=== PATIENT | female | born 1995 | race Caucasian/White ===

== ENCOUNTER 2016-09-14 14:34 | Emergency (ER) | payer OTHER, BC ==
[2016-09-14] MEDS ORDERED: NAPROXEN 250 MG TAB As Ordered ONE (15:34)
--- NOTE | 2016-09-14 16:07 | EDDOCDS ---
Physician Documentation [facility] Name: Deepa Carpio Age: 21 yrs Sex: Female : 1995 Arrival Date: 09/14/2016 Time: 14:34 Bed Private MD: NO PRIMARY PHYSICIAN, . Disposition: 09/14/16 15:41 Discharged to Home/Self Care. Impression: Low back pain - Acute, Right-sided. - Condition is Stable. - Discharge Instructions: Back Pain, Adult. - Prescriptions for Mobic 7.5 mg Oral Tablet - take 1 tablet by ORAL route once daily take with food; 20 tablet. Prednisone 20 mg Oral Tablet - take 3 tablet by ORAL route once daily for 5 days; 15 tablet. Zanaflex 4 mg Oral Tablet - take 1 tablet by ORAL route At bedtime As needed May cause drowsiness, do not take while driving/operating heavy machinery.; 20 tablet. - Work Release Form - 3 day, Referral List Call for Appointment, Medication Reconciliation, Local Pharmacy Hours form. - Follow up: [facility] ; When: 1 - 2 days; Reason: Recheck today's complaints, Continuance of care. Follow up: Emergency Department; Reason: Worsening of conditions. Follow up: [facility]; When: Call to arrange an appointment; Reason: Further diagnostic work-up, Recheck today's complaints, Continuance of care. - Problem is new. - Symptoms have improved. Historical: - Allergies: no known allergies; - Home Meds: 1. none - PMHx: back pain; dislocated S I joint; - PSHx: none; - Social history: Smoking status: Patient states was never smoker of tobacco. No barriers to communication noted, The patient speaks fluent Italian, Speaks appropriately for age. - Family history: Not pertinent. - : The pt / caregiver states he / she is not on anticoagulants. Home medication list is obtained from the patient. - Exposure Risk Screening:: None identified. 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 6 in. (167.64 cm) (R); Pain 4/10; 15:51 BP 117 / 76 LA Sitting (auto/reg); Pulse 75; Resp 18; Temp 96.6(O); Pulse Ox 100% ; jrd Pain 4/10; 14:36 Body Mass Index 26.63 (74.84 kg, 167.64 cm) gr2 MDM: 15:28 Naproxen 500 mg PO once; administer with food or milk ordered. ef1 15:28 Ice Pack ordered. ef1 15:31 Financial registration complete. 15:41 [facility] Payment Agreement was scanned into [employer] and attached to record. lg Administered Medications: 15:38 Drug: Naproxen 500 mg [naproxen 250 mg tablet (2 tabs)] Route: PO; [facility] 16:04 Follow up: Response: Pain is decreased hs1 Signatures: Amanda Zamudio, RN RN srm Elpidio Vazquez, Reg Reg Nina Fernandes, PA-C PAAmanC ef1 Gloria Pham RN RN 1 Elizabeth Arredondo RN [facility] The chart was reviewed and I authenticate all verbal orders and agree with the evaluation and treatment provided.Attachments: 15:41 [facility] Payment Agreement lg MTDD
--- NOTE | 2016-09-14 16:07 | EDDOCDS ---
Nurse's Notes [facility] Name: Deepa Carpio Age: 21 yrs Sex: Female : 1995 Arrival Date: 09/14/2016 Time: 14:34 Bed PR Private MD: NO PRIMARY PHYSICIAN, . 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 felt better yesterday but today at work it was throbbing and now having pain left side. incident occurred at work. Acute neurological deficits are not present. Mechanism of Injury: Lifting. Adult Sepsis Screening: The patient does not have new or worsening altered mentation. Patient's respiratory rate is less than 22. Systolic blood pressure is greater than 100. Patient has a qSOFA score of 0- Negative Sepsis Screen. Suicide/Homicide risk assessment- the patient denies having any suicidal and/or homicidal ideations and does not present with any other emotional, behavioral or mental health complaints. Status: Patient is not a surgical services assistant or dependent. Transition of care: patient was not received from another setting of care. 14:47 Acuity: LISA Level [address] [facility] 14:47 Method Of Arrival: Walkin/Carried/Asstd [facility] Triage Assessment: 14:50 General: Appears in no apparent distress, Behavior is appropriate for age, cooperative. srm Pain: Pain currently is 4 out of 10 on a pain scale. Musculoskeletal: Reports right low back pain. 14:50 HIV screening NA for this visit Offered previously. 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 Historical: - Allergies: no known allergies; - Home Meds: 1. none - PMHx: back pain; dislocated S I joint; - PSHx: none; - Social history: Smoking status: Patient states was never smoker of tobacco. No barriers to communication noted, The patient speaks fluent Belgian, Speaks appropriately for age. - Family history: Not pertinent. - : The pt / caregiver states he / she is not on anticoagulants. Home medication list is obtained from the patient. - Exposure Risk Screening:: None identified. Screenin:05 Screening information is obtained from the patient. Fall risk: No risks identified. hs1 Assistance ADL's: requires no assistance with activities of daily living. Abuse/DV Screen: The patient / caregiver reports he/she is: not in a situation that causes fear, pain or injury. Nutritional screening: No deficits noted. Advance Directives: There is no active DNR order. home support is adequate. Assessment: 16:04 General: Appears in no apparent distress, Behavior is appropriate for age, cooperative. hs1 Pain:. Neurological: Level of Consciousness is awake, alert. Respiratory: No deficits noted. Derm: Skin is pink, warm & dry. normal. Vital Signs: 14:36 BP 126 / 65; Pulse 73; Resp 18 S; Temp 97.5(O); Pulse Ox 100% on R/A; Weight 74.84 kg gr2 (R); Height 5 ft. 6 in. (167.64 cm) (R); Pain 4/10; 15:51 BP 117 / 76 LA Sitting (auto/reg); Pulse 75; Resp 18; Temp 96.6(O); Pulse Ox 100% ; jrd Pain 4/10; 14:36 Body Mass Index 26.63 (74.84 kg, 167.64 cm) gr2 Vitals: 14:36 Log In Time: September 14, 2016 at 14:36. gr2 ED Course: 14:35 Patient visited by Maria Clark. gr2 14:35 Patient moved to Waiting gr2 14:36 NO PRIMARY PHYSICIAN, . is Private Physician. gr2 14:37 Patient visited by Maria Clark. gr2 14:37 Patient moved to Pre RCE gr2 14:49 Triage Initiated srm 15:19 Nina Fernandes PA-C [facility]. ef1 15:19 Vinay Buchanan MD is Attending Physician. ef1 15:19 Patient visited by Nina Fernandes PA-C. ef1 15:19 Patient moved to PR srm 15:41 Patient visited by Nina Fernandes PA-C. ef1 15:41 [facility] is Referral Physician. ef1 15:41 [facility]. ef1 15:41 [facility] Payment Agreement was scanned into [employer] and attached to record. lg 16:05 The patient / caregiver is instructed regarding the plan of care and ED course. hs1 16:05 No IV's were initiated during this patient's visit. No procedures done that require hs1 assistance. Administered Medications: 15:38 Drug: Naproxen 500 mg [naproxen 250 mg tablet (2 tabs)] Route: PO; [facility] 16:04 Follow up: Response: Pain is decreased hs1 Order Results: There are currently no results for this order. Outcome: 15:41 Discharge ordered by Provider. ef1 16:06 Discharge Assessment: Patient awake, alert and oriented x 3. No cognitive and/or hs1 functional deficits noted. Patient verbalized understanding of disposition instructions. patient administered narcotics - no. The following High Risk Discharge criteria are identified: None. Discharged to home ambulatory. Condition: stable. Discharge instructions given to patient, Instructed on discharge instructions, follow up and referral plans. medication usage, Demonstrated understanding of instructions, medications, Pt was receptive of discharge instructions/ teaching. Prescriptions given X 3. No special radiology studies were completed. Property sent home with patient. 16:06 Patient left the ED. hs1 Signatures: Amanda Zamudio, RN RN [facility] Elpidio Vazquez, Antony Hardy Nina Fernandes, PA-C PA-C ef1 Gloria Pham RN RN hs1 Elizabeth Arredondo RN RN [facility] Maria Clark gr2 Mario Alberto Garza, FARIHA FRUCTOSE LOADER jrd MTDD
--- NOTE | 2016-09-16 17:07 | EDDOCDS ---
Physician Documentation [facility] Name: Deepa Carpio Age: 21 yrs Sex: Female : 1995 Arrival Date: 09/14/2016 Time: 14:34 Bed Private MD: NO PRIMARY PHYSICIAN, . Disposition: 09/14/16 15:41 Discharged to Home/Self Care. Impression: Low back pain - Acute, Right-sided. - Condition is Stable. - Discharge Instructions: Back Pain, Adult. - Prescriptions for Mobic 7.5 mg Oral Tablet - take 1 tablet by ORAL route once daily take with food; 20 tablet. Prednisone 20 mg Oral Tablet - take 3 tablet by ORAL route once daily for 5 days; 15 tablet. Zanaflex 4 mg Oral Tablet - take 1 tablet by ORAL route At bedtime As needed May cause drowsiness, do not take while driving/operating heavy machinery.; 20 tablet. - Work Release Form - 3 day, Referral List Call for Appointment, Medication Reconciliation, Local Pharmacy Hours form. - Follow up: [facility] ; When: 1 - 2 days; Reason: Recheck today's complaints, Continuance of care. Follow up: Emergency Department; Reason: Worsening of conditions. Follow up: [facility]; When: Call to arrange an appointment; Reason: Further diagnostic work-up, Recheck today's complaints, Continuance of care. - Problem is new. - Symptoms have improved. Historical: - Allergies: no known allergies; - Home Meds: 1. none - PMHx: back pain; dislocated S I joint; - PSHx: none; - Social history: Smoking status: Patient states was never smoker of tobacco. No barriers to communication noted, The patient speaks fluent Puerto Rican, Speaks appropriately for age. - Family history: Not pertinent. - : The pt / caregiver states he / she is not on anticoagulants. Home medication list is obtained from the patient. - Exposure Risk Screening:: None identified. 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 6 in. (167.64 cm) (R); Pain 4/10; 15:51 BP 117 / 76 LA Sitting (auto/reg); Pulse 75; Resp 18; Temp 96.6(O); Pulse Ox 100% ; jrd Pain 4/10; 14:36 Body Mass Index 26.63 (74.84 kg, 167.64 cm) gr2 MDM: 15:28 Naproxen 500 mg PO once; administer with food or milk ordered. ef1 15:28 Ice Pack ordered. ef1 15:31 Financial registration complete. lg 15:41 [facility] Payment Agreement was scanned into [employer] and attached to record. 09/15 12:22 T-Sheet-- Draft Copy was scanned into [employer] and attached to record. gb Administered Medications: 09/14 15:38 Drug: Naproxen 500 mg [naproxen 250 mg tablet (2 tabs)] Route: PO; [facility] 16:04 Follow up: Response: Pain is decreased hs1 Signatures: Amanda Zamudio, RN RN [facility] Kisha Narvaez, Reg Reg gb Elpidio Vazquez, Reg Reg lg Nina Fernandes, PA-C PA-C ef1 Gloria Pham RN RN hs1 Elizabeth Arredondo RN [facility] The chart was reviewed and I authenticate all verbal orders and agree with the evaluation and treatment provided.Attachments: 15:41 [facility]CLUDES THE [facility] Payment Agreement 09/15 12:22 T-Sheet-- Draft Copy Chart Complete MTDD
--- NOTE | 2016-09-16 17:07 | EDDOCDS ---
Nurse's Notes [facility] Name: Deepa Carpio Age: 21 yrs Sex: Female : 1995 Arrival Date: 09/14/2016 Time: 14:34 Bed PR Private MD: NO PRIMARY PHYSICIAN, . 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 felt better yesterday but today at work it was throbbing and now having pain left side. incident occurred at work. Acute neurological deficits are not present. Mechanism of Injury: Lifting. Adult Sepsis Screening: The patient does not have new or worsening altered mentation. Patient's respiratory rate is less than 22. Systolic blood pressure is greater than 100. Patient has a qSOFA score of 0- Negative Sepsis Screen. Suicide/Homicide risk assessment- the patient denies having any suicidal and/or homicidal ideations and does not present with any other emotional, behavioral or mental health complaints. Status: Patient is not a visitor services associate or dependent. Transition of care: patient was not received from another setting of care. 14:47 Acuity: LISA Level 4 [facility] 14:47 Method Of Arrival: Walkin/Carried/Asstd [facility] Triage Assessment: 14:50 General: Appears in no apparent distress, Behavior is appropriate for age, cooperative. srm Pain: Pain currently is 4 out of 10 on a pain scale. Musculoskeletal: Reports right low back pain. 14:50 HIV screening NA for this visit Offered previously. 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 none - PMHx: back pain; dislocated S I joint; - PSHx: none; - Social history: Smoking status: Patient states was never smoker of tobacco. No barriers to communication noted, The patient speaks fluent Australian, Speaks appropriately for age. - Family history: Not pertinent. - : The pt / caregiver states he / she is not on anticoagulants. Home medication list is obtained from the patient. - Exposure Risk Screening:: None identified. Screenin:05 Screening information is obtained from the patient. Fall risk: No risks identified. hs1 Assistance ADL's: requires no assistance with activities of daily living. Abuse/DV Screen: The patient / caregiver reports he/she is: not in a situation that causes fear, pain or injury. Nutritional screening: No deficits noted. Advance Directives: There is no active DNR order. home support is adequate. Assessment: 16:04 General: Appears in no apparent distress, Behavior is appropriate for age, cooperative. hs1 Pain:. Neurological: Level of Consciousness is awake, alert. Respiratory: No deficits noted. Derm: Skin is pink, warm & dry. normal. Vital Signs: 14:36 BP 126 / 65; Pulse 73; Resp 18 S; Temp 97.5(O); Pulse Ox 100% on R/A; Weight 74.84 kg gr2 (R); Height 5 ft. 6 in. (167.64 cm) (R); Pain 4/10; 15:51 BP 117 / 76 LA Sitting (auto/reg); Pulse 75; Resp 18; Temp 96.6(O); Pulse Ox 100% ; jrd Pain 4/10; 14:36 Body Mass Index 26.63 (74.84 kg, 167.64 cm) gr2 Vitals: 14:36 Log In Time: September 14, 2016 at 14:36. gr2 ED Course: 14:35 Patient visited by Maria Clark. gr2 14:35 Patient moved to Waiting gr2 14:36 NO PRIMARY PHYSICIAN, . is Private Physician. gr2 14:37 Patient visited by Maria Clark. gr2 14:37 Patient moved to Pre RCE gr2 14:49 Triage Initiated srm 15:19 [facility]andes [facility] ef[facility] 15:19 Vinay Buchanan MD is Attending Physician. ef1 15:19 Patient visited by Nina Fernandes PA-C. ef1 15:19 Patient moved to PR srm 15:41 Patient visited by Nina Fernandes PA-C. ef1 15:41 [facility] is Referral Physician. ef1 15:41 [facility]. ef1 15:41 [facility] Payment Agreement was scanned into [employer] and attached to record. lg 16:05 The patient / caregiver is instructed regarding the plan of care and ED course. hs1 16:05 No IV's were initiated during this patient's visit. No procedures done that require hs1 assistance. 09/15 12:22 T-Sheet-- Draft Copy was scanned into [employer] and attached to record. gb Administered Medications: 09/14 15:38 Drug: Naproxen 500 mg [naproxen 250 mg tablet (2 tabs)] Route: PO; [facility] 16:04 Follow up: Response: Pain is decreased hs1 Order Results: There are currently no results for this order. Outcome: 15:41 Discharge ordered by Provider. ef1 16:06 Discharge Assessment: Patient awake, alert and oriented x 3. No cognitive and/or hs1 functional deficits noted. Patient verbalized understanding of disposition instructions. patient administered narcotics - no. The following High Risk Discharge criteria are identified: None. Discharged to home ambulatory. Condition: stable. Discharge instructions given to patient, Instructed on discharge instructions, follow up and referral plans. medication usage, Demonstrated understanding of instructions, medications, Pt was receptive of discharge instructions/ teaching. Prescriptions given X 3. No special radiology studies were completed. Property sent home with patient. 16:06 Patient left the ED. hs1 Signatures: Amanda Zamudio, RN RN [facility] Kisha Narvaez, Reg Reg gb Elpidio Vazquez, Reg Reg lg Nina Fernandes, PA-C PA-C ef1 Gloria Pham RN RN hs1 Elizabeth Arredondo RN RN [facility] Maria Clark gr2 Mario Alberto Garza, FARIHA FIRE CONTROLMAN jrd Chart Complete MTDD
--- NOTE | 2016-09-16 17:07 | EDDOCDS ---
Physician Documentation [facility] Name: Deepa Carpio Age: 21 yrs Sex: Female : 1995 Arrival Date: 09/14/2016 Time: 14:34 Bed Private MD: NO PRIMARY PHYSICIAN, . Disposition: 09/14/16 15:41 Discharged to Home/Self Care. Impression: Low back pain - Acute, Right-sided. - Condition is Stable. - Discharge Instructions: Back Pain, Adult. - Prescriptions for Mobic 7.5 mg Oral Tablet - take 1 tablet by ORAL route once daily take with food; 20 tablet. Prednisone 20 mg Oral Tablet - take 3 tablet by ORAL route once daily for 5 days; 15 tablet. Zanaflex 4 mg Oral Tablet - take 1 tablet by ORAL route At bedtime As needed May cause drowsiness, do not take while driving/operating heavy machinery.; 20 tablet. - Work Release Form - 3 day, Referral List Call for Appointment, Medication Reconciliation, Local Pharmacy Hours form. - Follow up: [facility] ; When: 1 - 2 days; Reason: Recheck today's complaints, Continuance of care. Follow up: Emergency Department; Reason: Worsening of conditions. Follow up: [facility]; When: Call to arrange an appointment; Reason: Further diagnostic work-up, Recheck today's complaints, Continuance of care. - Problem is new. - Symptoms have improved. Historical: - Allergies: no known allergies; - Home Meds: 1. none - PMHx: back pain; dislocated S I joint; - PSHx: none; - Social history: Smoking status: Patient states was never smoker of tobacco. No barriers to communication noted, The patient speaks fluent Botswanan, Speaks appropriately for age. - Family history: Not pertinent. - : The pt / caregiver states he / she is not on anticoagulants. Home medication list is obtained from the patient. - Exposure Risk Screening:: None identified. 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 6 in. (167.64 cm) (R); Pain 4/10; 15:51 BP 117 / 76 LA Sitting (auto/reg); Pulse 75; Resp 18; Temp 96.6(O); Pulse Ox 100% ; jrd Pain 4/10; 14:36 Body Mass Index 26.63 (74.84 kg, 167.64 cm) gr2 MDM: 15:28 Naproxen 500 mg PO once; administer with food or milk ordered. ef1 15:28 Ice Pack ordered. ef1 15:31 Financial registration complete. lg 15:41 [facility] Payment Agreement was scanned into [employer] and attached to record. 09/15 12:22 T-Sheet-- Draft Copy was scanned into [employer] and attached to record. gb Administered Medications: 09/14 15:38 Drug: Naproxen 500 mg [naproxen 250 mg tablet (2 tabs)] Route: PO; [facility] 16:04 Follow up: Response: Pain is decreased hs1 Signatures: Amanda Zamudio, RN RN [facility] Kisha Narvaez, Reg Reg gb Elpidio Vazquez, Reg Reg lg Nina Fernandes, PA-C PA-C ef1 Gloria Pham RN RN hs1 Elizabeth Arredondo RN [facility] The chart was reviewed and I authenticate all verbal orders and agree with the evaluation and treatment provided.Attachments: 15:41 [facility] Payment Agreement 09/15 12:22 T-Sheet-- Draft Copy Chart Complete MTDD
== END 2016-09-14 16:06 | disposition home or self-care (01) ==
LOC: M ED 14:34
DX: M54.5 Low back pain (principal)

== ENCOUNTER → 2016-11-16 | Outpatient (CLI) | payer OTHER, BC ==
--- NOTE | 2016-11-16 08:51 | REP ---
MRI LUMBAR SPINE WITHOUT CONTRAST: HISTORY: Back pain. COMPARISON: 10/24/2007. There is no disc bulge or herniation at the L1-2 through L3-4 and L5-S1 levels. The nerves exit the neural foramina without compression. A diffuse disc bulge is present at the L4-5 level. This abuts the thecal sac. The L4 nerves exit the neural foramina without compression. The conus medullaris is normal in appearance terminating at the level of the T12-L1 intervertebral disc . Normal signal intensity is present in the lumbar intervertebral discs and vertebral bodies. IMPRESSION: Diffuse disc bulge at the L4-5 level. This abuts the thecal sac. This is a new finding. Signed by Zane Root MD 11/16/2016 08:53 A
== END ==
LOC: M RAD 07:01
PROVIDERS: ATTEND Orthopaedic Surgery
DX: M51.26 Other intervertebral disc displacement, lumbar region (principal)

== ENCOUNTER → 2017-05-19 | Outpatient (REF) | payer BC | LOC: M SFHCWAGY 08:56 | PROVIDERS: ATTEND Nurse Practitioner Women's Health | DX: Z12.4 Encounter for screening for malignant neoplasm of cervix (principal) ==

== ENCOUNTER → 2017-07-18 | Outpatient (CLI) | payer BC | LOC: M WUC 10:38 | PROVIDERS: ATTEND Family Medicine | DX: Z00.00 Encounter for general adult medical examination without abnormal findings (principal) ==

== ENCOUNTER → 2017-12-08 | Outpatient (REF) | payer BC ==
[2017-12-08 17:58] LABS: APPEARANCE, URINE HAZY (CLEAR); BACTERIA, URINE AUTO NEGATIVE (NEGATIVE); BILIRUBIN, URINE AUTO NEGATIVE (NEGATIVE); BLOOD, URINE BLOOD 1+ (NEGATIVE); COLOR, URINE YELLOW (YELLOW); GLUCOSE, URINE (UA) AUTO NEGATIVE (NEGATIVE); KETONE, URINE AUTO NEGATIVE (NEGATIVE); LEUKOCYTE ESTERASE, URINE AUTO TRACE (NEGATIVE); NITRITE, URINE AUTO NEGATIVE (NEGATIVE); PROTEIN, URINE AUTO NEGATIVE (NEGATIVE); RBC, URINE AUTO 3 /HPF (0-3); SPECIFIC GRAVITY URINE AUTO 1.021 (1.002-1.035); SQUAMOUS EPITHELIAL CELL UR AU 3 /HPF (0-6); UROBILINOGEN, URINE AUTO 0.2 mg/dL (0.0-2.0); WBC, URINE AUTO 7 /HPF (0-3)
== END ==
LOC: M LAB REF 17:09
DX: N39.0 Urinary tract infection, site not specified (principal)
CPT/HCPCS: 81001

== ENCOUNTER → 2019-06-16 | Outpatient (REF) | payer BC, OTHER | LOC: M LAB REF 13:37 | PROVIDERS: ATTEND Nurse Practitioner Family | DX: J02.9 Acute pharyngitis, unspecified (principal) ==

== ENCOUNTER 2020-04-29 11:58 | Outpatient (CLI) | payer OTHER ==
[~2020-04-29] VITALS: Ht 167.6 cm; Wt 94.3 kg
[2020-04-29 12:16] VITALS: BP 113/66
[2020-04-29] MEDS ORDERED: TUMS500C PO (12:22)
[2020-04-29] MEDS ORDERED: GNP28TAB2 PO (12:22)
[2020-04-29 14:09] VITALS: BP 115/70
--- NOTE | 2020-04-29 14:36 | IPNPDOC ---
Obstetrical Progress Note Date of Service Apr 29, 2020 Subjective 24-year-old 1 at 33 weeks 5 gestational age, presents to labor and delivery after a fall earlier today. She reports active movements. Denies any vaginal bleeding, leakage of fluid or contractions. She states that she fell from standing position and her landed on navin side and did not land on her abdomen. Objective: Vital signs stable. She is afebrile. She has category 1 rate tracing. General appearance well-appearing, no acute distress Abdomen was soft, gravid, nontender. Assessment 24-year-old 1 at 33 weeks 5 days estimated gestational age status post fall currently stable. No signs of abruption or distress. Reassuring status. Plan is to discharge home with labor precautions and kick count instructions. She will follow-up at next OB appointment on May 14 Objective Vital Signs Date Time Temp Pulse Resp B/P (MAP) Pulse Ox O2 Delivery O2 Flow Rate FiO2 04/29/20 12:16 98.6 84 18 113/66 (82) Assessment Variability: Moderate Accelerations: Positive Decelerations: None Heart Rate Tracing: Category I Tocometer Contractions: No Assessment and Plan Age: 24 : 1 EGA at Admission: 33 Status: Reassuring THEODORE CORTEZ MD. Apr 29, 2020 14:36
== END 2020-04-29 14:20 | disposition home or self-care (01) ==
LOC: M LDO 11:58
PROVIDERS: ATTEND Obstetrics & Gynecology
DX: O99.89 Other specified diseases and conditions complicating pregnancy, childbirth and the puerperium (principal); W01.0XXA Fall on same level from slipping, tripping and stumbling without subsequent striking against object, initial encounter; Z3A.33 33 weeks gestation of pregnancy
CPT/HCPCS: 59025; G0378; G0463

== ENCOUNTER 2020-06-22 09:26 | Inpatient (IN) | payer OTHER ==
[~2020-06-22] VITALS: Ht 167.6 cm; Wt 98.0 kg
[2020-06-22] VITALS (17 sets, daily range): BP systolic 91–136; BP diastolic 50–78
[~2020-06-22 09:26] MED LIST: GNP28TAB2 PO; TUMS500C PO
[2020-06-22] MEDS ORDERED: COLA100C5 PO (09:49)
[2020-06-22] MEDS ORDERED: PEPC1TAB5 PO (09:49)
[2020-06-22] MEDS ORDERED: LR 1,000 ML IV ONE (10:15)
[2020-06-22] MEDS ORDERED: miSOPROStol 50 MCG 1/2 TAB (S0191) PO ONE ×2 (10:30→15:45)
[2020-06-22] MEDS ORDERED: LACTATED RINGER'S 1000 ML IV ONE (10:30)
[2020-06-22 10:49] LABS: HEMATOCRIT 35.4 % (36.0-47.0); MEAN CORPUSCULAR HEMOGLOBIN 28.4 pg (27.0-33.0); MEAN CORPUSCULAR HGB CONC 31.1 g/dl (32.0-36.5); MEAN CORPUSCULAR VOLUME 91.5 fl (80.0-96.0); PLATELET COUNT, AUTOMATED 289 10^3/uL (150-450); RED BLOOD COUNT 3.87 10^6/uL (4.00-5.40); WHITE BLOOD COUNT 10.1 10^3/uL (4.0-10.0)
[2020-06-22] MEDS: LR 1,000 ML IV SCH ×2 (11:21→18:13)
--- NOTE | 2020-06-22 11:28 | HPEPDOC ---
Obstetrical History & Physical General Date of Admission Jun 22, 2020 at 09:26 Primary Care Physician: Chris Goss MD History of Present Illness 06/22/20 1043 AM 24 YO AT 41.3 WEEKS FOR IOL Chief Complaint: Induction of labor Age: 24 : 1 Term: 0 Pre-term: 0 Abortions: 0 Livin Care Care: Good Care Dating Final EDC: Jun 12, 2020 Final EDC for Daily Update: Jun 12, 2020 Final EDC by: LMP LMP: Sep 11, 2019 EGA at Admission: 41.3 Past Medical History Past Obstetrical History : Past Obstetrical History: [facility] History: No pertinent history Past Medical History Surgical History: Denies/None Family History Significant Family History: No pertinent family hx Social History Marital Status: Family situation: Spouse/partner home Psychosocial History: No pertinent psych hx * Smoker: non-smoker Alcohol: Denies Abuse Violence Screening Have you been hit/kicked/slapp: No Have you been sexually assault: No Imunizations Tdap status: current Influenza Status: current Allergies Coded Allergies: adhesive (Verified Allergy, Intermediate, skin peels/redness, 06/22/20) Medications Scheduled Docusate Sodium (Colace) 100 Mg Capsule, 100 MG PO DAILY Famotidine (Pepcid) 20 Mg Tablet, 20 MG PO DAILY Pnv No.95/Ferrous Fum/Folic AC ( Vitamins Tablet) 1 Each Tablet, 1 TAB PO DAILY Scheduled PRN Calcium Carbonate (Tums) 200 Mg Tab.chew, 600 MG PO PRN PRN for HEARTBURN Physical Examination Physical Examination GENERAL: Alert and oriented times three. BREAST: . ABDOMEN: Gravid and non-tender to touch. FETUS: Is vertex (VTX) by sterile vaginal examination (SVE), fetus is vertex (VTX) by Ricky. HEART RATE: Regular rate and rhythm. LUNGS: Clear to auscultation NO RALES NO RHONCHI EXTREMITIES: No edema. NO CLONUS Other physical findings REVIEWED IOL PROCESS BASED ON CERVICAL EXAMINATION IE CYTOTEC , PITOCIN AND JOSEPH CATHETER Vital Signs/I&O urine 1.000 ph 7.0 negative bp 110/73 hr 93 rr 20 Laboratory Data 24H LABS Laboratory Tests 2 06/22/20 09:34: Serology Scanned Report Hepatitis B Testing Pertinent Laboratoy Data Blood Type: O+ RBC Antibody Screen: Negative HIV: Negative Hepatitis B: Negative Rapid Plasma Reagin: Nonreactive Rubella: Immune Varicella: Immune Chlamydia/Gonorrhea: Negative Group B Streptococcus: Negative Cystic Fibrosis: Negative Anatomy Ultrasound Placenta Location: Anterior Normal Anatomy: Yes Placenta Previa: No Vaginal Examination Dilation: 1cm Effacement: 50% Station: -3 Cervical Consistency: Medium Cervical Position: Posterior Presentation: Cephalic presentation Assessment Variability: Moderate Accelerations: Present Decelerations: None Tocometer Contractions: No Assessment/Plan Assessment 24 year-old (G1 para (P0 at 41.3 weeks BY LMP Presents to Labor and Delivery (L&D) . Plan Admit and orient. Quality Project Manager and consent. Diet: RAYMUNDO Group B Streptococcus (GBS) [negative]. Labs and intravenous (IV) per unit protocol. Counseled on Pitocin and induction of labor (IOL). Lactated Ringers (LR): Bolus 1000 mL, then at 125 mL/hr. Anticipate [normal spontaneous delivery ()]. C-S as appropriate. Labor and Delivery Counseling REVIEWED CONSENT FOR VAGINAL DELIVERY MAY INCLUDE PITOCIN OR CYTOTEC OR JOSEPH BULB RISK IS TACHYCARDIA, UTERINE SYSTOLE , UTERINE RUPTURE RISK FOR CS INCLUDE HEMORRHAGE INFECTION PERFORATION REOPERATION REMOTE FOR BLOOD TRANSFUSION REMOTE HYSTERECTOMY FOR LIFE THREATENING BLEEDING RISK WITH EPISIOTOMY, CAUSES NEED FOR REPAIR TO VAGINA BLADDER OR BOWEL, RISK IF NEEDED FOR FORCEPS OR VACUUM FOR EMERGENCY DELIVERY CAN RESULT IN SCRATCHES , HEMATOMA OR INTRACRANIAL BLEED NO CATEGORY 1 STRIP PATIENT EXPRESSED UNDERSTANDING 20 MINUTE DISCUSSION SAFE TO PROCEED . PLAN IS FOR CYTOTEC TO SOFTEN CERVIX THEN ATTEMPT JOSEPH BULB AND PITOCIN Chris Goss MD Jun 22, 2020 11:01
--- NOTE | 2020-06-22 21:06 | IPNPDOC ---
Text Note Date of Service The patient was seen on 06/22/20. NOTE 06/22/20 2100 hours assessment patient having contractions mild occasional moderate with category 1 strip. assessment re Cytotec or Brothers bulb and Pitocin . EXAMINATION 2 CM ANTERIOR SOFT 70% EFFACED -3 STATION PROGRESS MADE REVIEWED COOK'S CATHETER WITH PATIENT EXPRESSED UNDERSTANDING . APPLIED COOK'S CATHETER 60 CC UTERINE 40 CC VAGINAL NO DIFFICULTY. SAFE TO PROCEED , VS,Fishbone, I+O VS, Fishbone, I+O Laboratory Tests 06/22/20 10:32 Vital Signs Date Time Temp Pulse Resp B/P (MAP) Pulse Ox O2 Delivery O2 Flow Rate FiO2 06/22/20 20:39 75 18 119/59 (79) 06/22/20 19:25 97.9 06/22/20 09:49 98 Chris Goss MD Jun 22, 2020 21:05
[2020-06-22] MEDS ORDERED: OXYTOCIN DRIP 30 UNITS in IV 1 EA IV SCH (21:15)
[2020-06-22] MEDS ORDERED: FENTANYL 2MCG/ML ROPIVACAINE 0.2% IN 0.9% NACL 100ML IVBAG As Ordered ONE (22:55)
[2020-06-22] MEDS ORDERED: EPIDURAL/PCA KEYS XX PRN (23:59)
[2020-06-22] MEDS ORDERED: diphenhydrAMINE 50MG/ML VIAL (J1200) IV PRN (23:59)
[2020-06-22] MEDS ORDERED: FENTANYL/ROPIVACAINE/NACL BAG 100 ML EPIDURAL SCH (23:59)
[2020-06-22] MEDS ORDERED: EPIDURAL COMMENT XX SCH (23:59)
[2020-06-22] MEDS ORDERED: LACTATED RINGER'S 1000 ML IV PRN (23:59)
[2020-06-22] MEDS ORDERED: NALOXONE INJ 0.4MG/1ML VIAL (J2310 PER 1MG) IV PRN (23:59)
[2020-06-22] MEDS ORDERED: REFRIGERATOR IV KEYS XX PRN (23:59)
[2020-06-22] MEDS ORDERED: ONDANSETRON 4MG/2ML VIAL IV PRN (23:59)
[2020-06-23] VITALS (32 sets, daily range): BP systolic 97–131; BP diastolic 53–78
[2020-06-23] MEDS ORDERED: ePHEDrine SULFATE 25 MG/5 ML(5MG/ML) SYRINGE As Ordered ONE (00:45)
[2020-06-23] MEDS: ePHEDrine SULFATE 25 MG/5 ML(5MG/ML) SYRINGE IV PRN ×3 (00:47→00:53)
--- NOTE | 2020-06-23 01:03 | IPNPDOC ---
Text Note Date of Service The patient was seen on 06/23/20. NOTE 06/23/20 100 am review progress has epidural in place Brothers bulb removed 5-6 cm dilated AROM clear liquor -3 OT 70% effaced . patient requires ephedrine due to low bp post epidural VS,Fishbone, I+O VS, Fishbone, I+O Laboratory Tests 06/22/20 10:32 Vital Signs Date Time Temp Pulse Resp B/P (MAP) Pulse Ox O2 Delivery O2 Flow Rate FiO2 06/23/20 00:52 90 100/57 (71) 06/23/20 00:02 96.9 18 06/22/20 09:49 98 I&O- Last 24 Hours up to 6 AM 06/23/20 06:00 Intake Total 1500 ml Output Total 950 ml Balance 550 ml Chris Goss MD Jun 23, 2020 01:03
[2020-06-23] MEDS: LR 1,000 ML IV SCH (03:20)
[2020-06-23 05:16] LABS: CORD GAS ABE A -4.1; CORD GAS HCO3 A 23.9 MEQ/L; CORD GAS O2 SAT A 33.9 %; CORD GAS PCO2 A 56.1 mmHg; CORD GAS PH A 7.247 UNITS; CORD GAS PO2 A 12.4 mmHg; CORD GAS SBC A 19.7 MEQ/L; CORD GAS TCO2 A 25.6 MEQ/L
[2020-06-23 05:17] LABS: CORD GAS ABE V -4.4; CORD GAS O2 SAT V 68.9 %; CORD GAS PCO2 V 45.5 mmHg; CORD GAS PH V 7.303 UNITS; CORD GAS SBC V 20.2 MEQ/L; CORD GAS TCO2 V 23.4 MEQ/L
[2020-06-23] MEDS ORDERED: LR 1,000 ML IV SCH (05:35)
[2020-06-23] MEDS ORDERED: DIBUCAINE 1% OINTMENT 30GM TOP PRN (05:45)
[2020-06-23] MEDS ORDERED: MOM 30ML SUSPENSION UDC PO PRN (05:45)
[2020-06-23] MEDS ORDERED: ACETAMINOPHEN TAB 650MG DOSE (2X325MG) PO PRN (05:45)
[2020-06-23] MEDS ORDERED: METHYLERGONOVINE MALEATE 0.2 MG TAB PO PRN (05:45)
[2020-06-23] MEDS ORDERED: IBUPROFEN 800 MG TAB PO PRN (05:45)
[2020-06-23] MEDS ORDERED: ACETAMINOPHEN 500 MG TAB PO PRN (05:45)
[2020-06-23] MEDS ORDERED: OXYTOCIN INJ 10 UNITS/ML VIAL (J2590) IV ONE (05:45)
[2020-06-23] MEDS ORDERED: RHOGAM 300 MCG (1500 IU) INJ (J2790) IM SCH (05:45)
[2020-06-23] MEDS ORDERED: MEASLES,MUMPS,RUBELLA VACCINE INJ (MMR-II) (90707) SC SCH (05:45)
[2020-06-23] MEDS ORDERED: ANUSOL HC CREAM 30GM TOP PRN (05:45)
[2020-06-23] MEDS ORDERED: IBUPROFEN 600MG TAB PO PRN (05:45)
[2020-06-23] MEDS ORDERED: OXYTOCIN DRIP 30 UNITS in IV 1 EA IV ONE (05:45)
--- NOTE | 2020-06-23 05:55 | DNPDOC ---
[facility] Delivery Note Delivery Note DATE OF DELIVERY: 06/23/2020 PREDELIVERY DIAGNOSIS:41.3 weeks' gestation and labor. POST DELIVERY DIAGNOSIS: Delivered. PROCEDURE: [Spontaneous vaginal delivery RECEIPT AND REPORT CLERK: Dr. JONES ANESTHESIA: EPIDURAL ESTIMATED BLOOD LOSS: 200 mL. FINDINGS: 8 pound 4 ounce FEMALE infant, Score 8/9 , SHORT CORD . DELIVERY SUMMARY: Patient is a 23-year-old 1 now para 1 who was admitted to labor and delivery for PATIENT FULLY DILATED HAS LIVE FEMALE WITH SHORT CORD PLACENTA SPONTANEOUS 3 VESSELS COMPLETE UTERUS CONTRACTED DOWN WITH PITOCIN . HAD SMALL VV RT SIDE REPAIRED ANTERIOR POSTERIOR AND LATERAL MARTINEZ INTACT .. Chris Goss MD Jun 23, 2020 05:55
[2020-06-23] MEDS: PRENATAL VITAMINS CHEWABLE TABLET PO SCH (07:55)
[2020-06-23] MEDS ORDERED: SLF 3 ML SYR IV PRN (08:30)
[2020-06-23] MEDS: SLF 3 ML SYR IV SCH (14:00)
[2020-06-23] MEDS: DOCUSATE SODIUM 100 MG CAP PO PRN (20:56)
--- NOTE | 2020-06-24 04:29 | IPNPDOC ---
Progress Note Date of Service: Jun 24, 2020 Day#: 1 Progress Note SUBJECT: Deepa is a 24-year-old 1 now Para 1001 status post uncompl icated spontaneous vaginal delivery at 41-3/7 weeks' on 06/23/2020 of a 8 pound 4 ounce FEMALE infant, Score 8/9. doing well day # 1. She has been ambulating, voiding spontaneously without issue and tolerating regular diet. Breast feeding without issue. Reports lochia is minimal. Patient is ambulating well. OBJECTIVE: VITAL SIGNS: Within normal limits, afebrile. Alert and oriented times three. normal work of breathing Heart rate: Regular rate and rhythm. Abdomen: Fundus firm at U-2. Soft, NTTP. ASSESSMENT: Deepa is a 24-year-old 1 now Para 1001 status post uncomplicated spontaneous vaginal delivery at 41-3/7 weeks' on 06/23/2020 of a 8 pound 4 ounce FEMALE infant, Score 8/9. doing well day # 1. Vitals within normal limits, afebrile, hemodynamically stable with no evidence of infection. PLAN: 1. continue inpatient admission 2. Tylenol and Motrin for pain. 3. Encourage breast feeding and ambulation. 4. condoms for contraception for now 5. Routine PP visit in 6 weeks in clinic. 6. Discussed return precautions at length. VS, I&O, 24H, Fishbone Vital Signs/I&O Vital Signs Date Time Temp Pulse Resp B/P (MAP) Pulse Ox O2 Delivery O2 Flow Rate FiO2 06/23/20 17:53 96.9 67 20 128/69 (88) 06/22/20 09:49 98 I&O- Last 24 Hours up to 6 AM 06/24/20 06:00 Output Total 1600 ml Balance -1600 ml Laboratory Data 24H LABS Laboratory Tests 2 06/23/20 05:10: Cord Arterial Blood pH 7.247, Cord Arterial Blood PCO2 56.1, Cord Arterial Blood PO2 12.4, Cord Arterial Blood HCO3 23.9, Cord Arterial Blood Total CO2 25.6, Cord Arterial Blood Base Excess -4.1, Cord Arterial Base Excess (Standard 19.7, Cord Arterial Bld Oxygen Saturation 33.9, Cord Venous Blood pH 7.303, Cord Venous Blood PCO2 45.5, Cord Venous Blood PO2 30.0, Cord Venous Blood HCO3 22.0, Cord Venous Blood Total CO2 23.4, Cord Venous Base Excess (Actual) -4.4, Cord Venous Base Excess (Standard) 20.2, Cord Venous Blood Oxygen Saturation 68.9 ROS CASTRO MD Jun 24, 2020 04:29
[2020-06-24 06:24] VITALS: BP 132/64
[2020-06-24] MEDS: PRENATAL VITAMINS CHEWABLE TABLET PO SCH (08:16)
[2020-06-24 08:28] LABS: HEMATOCRIT 35.4 % (36.0-47.0); HEMOGLOBIN 11.2 g/dl (12.0-15.5); MEAN CORPUSCULAR HEMOGLOBIN 29.1 pg (27.0-33.0); MEAN CORPUSCULAR HGB CONC 31.6 g/dl (32.0-36.5); MEAN CORPUSCULAR VOLUME 91.9 fl (80.0-96.0); PLATELET COUNT, AUTOMATED 284 10^3/uL (150-450); RED BLOOD COUNT 3.85 10^6/uL (4.00-5.40); WHITE BLOOD COUNT 12.8 10^3/uL (4.0-10.0)
[2020-06-24 18:00] VITALS: BP_SYST 127; BP_SYST 142; BP_DIAS 62; BP_DIAS 89
[2020-06-24] MEDS: DOCUSATE SODIUM 100 MG CAP PO PRN (21:28)
[2020-06-24] MEDS: SLF 3 ML SYR IV SCH (22:00)
[2020-06-25 05:44] VITALS: BP 126/80
[2020-06-25] MEDS: SLF 3 ML SYR IV SCH (06:00)
--- NOTE | 2020-06-25 08:14 | IPNPDOC ---
Progress Note Date of Service: Jun 25, 2020 Day#: 2 Progress Note SUBJECT: Deepa is a 24yo now status post uncomplicated spontaneous vag inal delivery doing well day # 2. She has been ambulating, voiding spontaneously without issue and tolerating regular diet. Breast feeding without issue. Reports lochia is decreasing. Pain controlled on oral pain meds. OBJECTIVE: VITAL SIGNS: Within normal limits, afebrile. Alert and oriented times three. Abdomen: Fundus firm at U-2. Soft, NTTP. : no edema, small lochia ASSESSMENT: Jaelyn is a 24yo now status post uncomplicated spontaneous vaginal delivery doing well day # 2. Vitals within normal limits, afebrile, hemodynamically stable with no evidence of infection. PLAN: 1. Discharge to home today 2. Tylenol and Motrin for pain. 3. Encourage breast feeding and ambulation. 4. Encourage regular diet as tolerated 5. Routine PP visit in 6 weeks in clinic. 6. Discussed return precautions at length. VS, I&O, 24H, Fishbone Vital Signs/I&O Vital Signs Date Time Temp Pulse Resp B/P (MAP) Pulse Ox O2 Delivery O2 Flow Rate FiO2 06/25/20 05:44 98.1 69 18 126/80 (95) 06/22/20 09:49 98 DAMASO BENAVIDEZ DO Jun 25, 2020 08:14
[2020-06-25] MEDS: PRENATAL VITAMINS CHEWABLE TABLET PO SCH (08:50)
[2020-06-25] MEDS: LR 1,000 ML IV SCH (10:29)
== END 2020-06-25 13:01 | disposition home or self-care (01) | DRG 807 ==
LOC: M LDI 09:26 → M OBS 06-23 11:45
PROVIDERS: ADMIT Obstetrics & Gynecology; ATTEND Obstetrics & Gynecology
PROC: 3E0DXGC Introduction of Other Therapeutic Substance into Mouth and Pharynx, External Approach (ICD-10-PCS; 2020-06-22)
PROC: 3E033VJ Introduction of Other Hormone into Peripheral Vein, Percutaneous Approach (ICD-10-PCS; 2020-06-22)
PROC: 10E0XZZ Delivery of Products of Conception, External Approach (ICD-10-PCS; principal; 2020-06-23)
PROC: 10907ZC Drainage of Amniotic Fluid, Therapeutic from Products of Conception, Via Natural or Artificial Opening (ICD-10-PCS; 2020-06-23)
DX: O48.0 Post-term pregnancy (principal); Z37.0 Single live birth; Z3A.41 41 weeks gestation of pregnancy; O69.3XX0 Labor and delivery complicated by short cord, not applicable or unspecified

== ENCOUNTER 2022-06-02 07:45 | Inpatient (IN) | payer OTHER, BC ==
[2022-06-02] VITALS (38 sets, daily range): BP systolic 95–152; BP diastolic 52–86
[~2022-06-02] VITALS: Ht 167.6 cm; Wt 100.7 kg
[~2022-06-02 07:45] MED LIST changes: +COLA100C5 PO; +PEPC1TAB5 PO
[2022-06-02] MEDS ORDERED: METHYLERGONOVINE MALEATE 0.2 MG/ML VIAL (J2210) IM PRN (07:55)
[2022-06-02] MEDS ORDERED: LIDOCAINE 1% MDV 20ML VIAL INFIL PRN (07:55)
[2022-06-02] MEDS ORDERED: TRANEXAMIC ACID INJection 1,000 MG in NS 100 ML IV PRN (07:55)
[2022-06-02] MEDS ORDERED: LR 1,000 ML IV SCH ×2 (07:55→15:50)
[2022-06-02] MEDS ORDERED: OXYTOCIN DRIP 30 UNITS in IV 1 EA IV PRN (07:55)
[2022-06-02] MEDS ORDERED: LACTATED RINGER'S 1000 ML IV PRN (07:55)
[2022-06-02] MEDS ORDERED: HOME MED LIST COMPLETE! XX SCH (08:55)
[2022-06-02] MEDS ORDERED: OXYTOCIN DRIP 30 UNITS in IV 1 EA IV SCH ×3 (09:15→16:10)
[2022-06-02 09:59] LABS: HEMATOCRIT 34.9 % (36.0-47.0); HEMOGLOBIN 11.2 g/dl (12.0-15.5); MEAN CORPUSCULAR HEMOGLOBIN 29.4 pg (27.0-33.0); MEAN CORPUSCULAR HGB CONC 32.1 g/dl (32.0-36.5); MEAN CORPUSCULAR VOLUME 91.6 fl (80.0-96.0); PLATELET COUNT, AUTOMATED 265 10^3/uL (150-450); RED BLOOD COUNT 3.81 10^6/uL (4.00-5.40); WHITE BLOOD COUNT 12.2 10^3/uL (4.0-10.0)
[2022-06-02] MEDS ORDERED: ONDANSETRON 4MG 2ML VIAL IV PRN ×3 (14:00→16:10)
[2022-06-02] MEDS ORDERED: FENTANYL/ROPIVACAINE/NACL BAG 100 ML EPIDURAL SCH (14:00)
[2022-06-02] MEDS ORDERED: diphenhydrAMINE 50MG/ML VIAL (J1200) IV PRN (14:00)
[2022-06-02] MEDS ORDERED: NALOXONE INJ 0.4MG/1ML VIAL (J2310 PER 1MG) IV PRN (14:00)
[2022-06-02] MEDS ORDERED: LR 500 ML IV PRN (14:00)
[2022-06-02] MEDS ORDERED: ePHEDrine SULFATE 25 MG/5 ML(5MG/ML) SYRINGE IVP PRN (14:00)
[2022-06-02] MEDS ORDERED: EPIDURAL/PCA KEYS XX PRN (14:00)
[2022-06-02 15:47] LABS: CORD GAS ABE A -4.8; CORD GAS ABE V -3.8; CORD GAS HCO3 A 23.3 MEQ/L; CORD GAS HCO3 V 22.6 MEQ/L; CORD GAS O2 SAT A 25.4 %; CORD GAS O2 SAT V 73.8 %; CORD GAS PCO2 A 56.1 mmHg; CORD GAS PCO2 V 45.8 mmHg; CORD GAS PH A 7.236 UNITS; CORD GAS PH V 7.311 UNITS; CORD GAS PO2 V 31.5 mmHg; CORD GAS SBC V 20.8 MEQ/L
[2022-06-02] MEDS ORDERED: RHOGAM 300 MCG (1500 IU) INJ (J2790) IM SCH ×2 (15:50→16:10)
[2022-06-02] MEDS ORDERED: ACETAMINOPHEN 500 MG TAB PO SCH (15:50)
[2022-06-02] MEDS ORDERED: PROMETHAZINE 25 MG TAB PO PRN ×2 (15:50→16:10)
[2022-06-02] MEDS ORDERED: METHYLERGONOVINE MALEATE 0.2 MG TAB PO PRN ×2 (15:50→16:10)
[2022-06-02] MEDS ORDERED: IBUPROFEN 800 MG TAB PO SCH (15:50)
[2022-06-02] MEDS ORDERED: DOCUSATE SODIUM 100MG CAPSULE PO PRN ×2 (15:50→16:10)
[2022-06-02] MEDS ORDERED: DIBUCAINE 1% OINTMENT 30GM TOP PRN ×2 (15:50→16:10)
[2022-06-02] MEDS ORDERED: CALCIUM CARBONATE 500 MG CHEW U/D PO PRN (15:55)
[2022-06-02] MEDS: IBUPROFEN 800 MG TAB PO SCH (18:00)
[2022-06-02] MEDS: ACETAMINOPHEN 500 MG TAB PO SCH ×2 (19:32→22:10)
[2022-06-03] MEDS: IBUPROFEN 800 MG TAB PO SCH ×2 (01:20→10:00)
[2022-06-03] MEDS: ACETAMINOPHEN 500 MG TAB PO SCH ×3 (04:10→16:10)
[2022-06-03 06:00] VITALS: BP 123/65
[2022-06-03 08:20] VITALS: BP 112/58
[2022-06-03] MEDS ORDERED: PRENATAL VITAMINS CHEWABLE TABLET PO SCH ×3 (09:00)
[2022-06-04] MEDS ORDERED: MEASLES,MUMPS,RUBELLA VACCINE INJ (MMR-II) (90707) SC.IMMUN ONE (09:00)
== END 2022-06-03 18:43 | disposition home or self-care (01) | DRG 807 ==
LOC: M LDI 07:45 → M OBS 18:29
PROVIDERS: ADMIT Registered Nurse; ATTEND Obstetrics & Gynecology
PROC: 10E0XZZ Delivery of Products of Conception, External Approach (ICD-10-PCS; principal; 2022-06-02)
DX: O80 Encounter for full-term uncomplicated delivery (principal); Z37.0 Single live birth; Z3A.40 40 weeks gestation of pregnancy

== ENCOUNTER → 2023-05-03 | Outpatient (CLI) | payer OTHER, BC ==
[2023-05-03 12:23] LABS: BASO % 0.6 % (0.0-1.0); EOS # 0.2 10^3/uL (0.0-0.5); EOS % 3.5 % (0.0-3.0); HEMATOCRIT 41.4 % (36.0-47.0); LYMPH # 1.5 10^3/uL (1.5-5.0); LYMPH % 28.1 % (24.0-44.0); MEAN CORPUSCULAR HEMOGLOBIN 29.1 pg (27.0-33.0); MEAN CORPUSCULAR HGB CONC 31.4 g/dl (32.0-36.5); MEAN CORPUSCULAR VOLUME 92.6 fl (80.0-96.0); MONO # 0.5 10^3/uL (0.0-0.8); MONO % 8.4 % (2.0-8.0); NEUTROPHILS # 3.2 10^3/uL (1.5-8.5); NEUTROPHILS % 59.2 % (36.0-66.0); PLATELET COUNT, AUTOMATED 249 10^3/uL (150-450); RED BLOOD COUNT 4.47 10^6/uL (4.00-5.40); WHITE BLOOD COUNT 5.5 10^3/uL (4.0-10.0)
[2023-05-03 12:24] LABS: ALBUMIN 3.9 G/DL (3.2-5.2); ALKALINE PHOSPHATASE 131 U/L (46-116); ALT/SGPT 39 U/L (7.0-40); AST/SGOT 27 U/L (<34); BILIRUBIN,TOTAL 0.7 MG/DL (0.3-1.2); BLOOD UREA NITROGEN 21 MG/DL (9-23); CALCIUM LEVEL 9.6 MG/DL (8.5-10.1); CARBON DIOXIDE LEVEL 31 MMOL/L (20-31); CHLORIDE LEVEL 107 MMOL/L (98-107); CREATININE FOR GFR 0.82 MG/DL (0.55-1.30); GLOMERULAR FILTRATION RATE > 60.0 (>60); GLUCOSE, FASTING 88 MG/DL (60-100); IRON (FE) 66 UG/DL (50-170); PERCENT SATURATION 21.3 % (13.2-45.0); POTASSIUM SERUM 4.6 MMOL/L (3.5-5.1); SODIUM LEVEL 144 MMOL/L (136-145); TOTAL IRON BINDING CAPACITY 310 UG/DL (250-425); TOTAL PROTEIN 6.8 G/DL (5.7-8.2)
[2023-05-03 12:25] LABS: FREE T4 1.14 NG/DL (0.89-1.76); THYROID STIMULATING HORMONE 1.032 uIU/ML (0.55-4.78)
[2023-05-03 12:26] LABS: TOTAL 25(OH) VITAMIN D 27.9 NG/ML (20.0-100.0)
== END ==
LOC: M WUC 09:43
PROVIDERS: ATTEND Registered Nurse
DX: R53.83 Other fatigue (principal)

== ENCOUNTER → 2023-06-06 | Outpatient (REF) | LOC: M EMP 07:48 | PROVIDERS: ATTEND Family Medicine | DX: Z53.9 Procedure and treatment not carried out, unspecified reason (principal) ==

== ENCOUNTER → 2023-07-04 | Outpatient (REF) | payer BC, OTHER | LOC: M SFHCWAGY 10:15 | PROVIDERS: ATTEND Nurse Practitioner Family | DX: Z12.4 Encounter for screening for malignant neoplasm of cervix (principal) | CPT/HCPCS: 87624; G0123 ==

== ENCOUNTER → 2023-09-05 | Outpatient (REF) | LOC: M EMP 08:59 | PROVIDERS: ATTEND Family Medicine | DX: Z11.52 Encounter for screening for COVID-19 (principal) ==

== ENCOUNTER 2024-01-09 12:15 | Emergency (ER) | payer OTHER ==
[~2024-01-09] VITALS: Ht 167.6 cm; Wt 85.7 kg
[2024-01-09 12:15] VITALS: BP 134/75; TEMP 98.2; O2SAT 96
[2024-01-09 13:03] LABS: HEMATOCRIT 38.1 % (36.0-47.0); HEMOGLOBIN 12.5 g/dl (12.0-15.5); MEAN CORPUSCULAR HEMOGLOBIN 30.2 pg (27.0-33.0); MEAN CORPUSCULAR HGB CONC 32.8 g/dl (32.0-36.5); PLATELET COUNT, AUTOMATED 235 10^3/uL (150-450); RED BLOOD COUNT 4.14 10^6/uL (4.00-5.40); WHITE BLOOD COUNT 6.7 10^3/uL (4.0-10.0)
[2024-01-09 13:31] LABS: ALBUMIN 3.9 G/DL (3.2-5.2); ALKALINE PHOSPHATASE 109 U/L (46-116); ALT/SGPT 39 U/L (7.0-40); AST/SGOT 22 U/L (<34); BILIRUBIN,TOTAL 0.6 MG/DL (0.3-1.2); BLOOD UREA NITROGEN 22 MG/DL (9-23); CALCIUM LEVEL 9.3 MG/DL (8.5-10.1); CARBON DIOXIDE LEVEL 26 MMOL/L (20-31); CHLORIDE LEVEL 108 MMOL/L (98-107); CREATININE FOR GFR 0.87 MG/DL (0.55-1.30); GLOMERULAR FILTRATION RATE > 60.0 (>60); GLUCOSE, FASTING 91 MG/DL (60-100); POTASSIUM SERUM 4.5 MMOL/L (3.5-5.1); SODIUM LEVEL 139 MMOL/L (136-145); TOTAL PROTEIN 6.7 G/DL (5.7-8.2)
[2024-01-09 13:33] LABS: HCG, SERUM QUALITATIVE NEGATIVE (NEGATIVE); HEPATITIS B SURFACE ANTIBODY NEGATIVE (POSITIVE)
[2024-01-09 13:41] LABS: ATYPICAL LYMPH 2 % (0-5); EOSINOPHILS 2 % (0-3); LYMPHOCYTES 37 % (16-44); MONOCYTES 8 % (0-5); NEUTROPHILS 51 % (28-66)
[2024-01-09 13:42] LABS: PLATELET ESTIMATE NORMAL (NORMAL)
[2024-01-09 13:45] LABS: HEPATITIS B SURFACE ANTIGEN NEGATIVE (NEGATIVE)
[2024-01-09 13:58] LABS: HIV SCREEN CENTAUR EXPOSED NEGATIVE (NEGATIVE)
[2024-01-09 14:06] LABS: HEPATITIS C VIRUS ABY INDEX < 0.02 INDEX (<0.8)
== END 2024-01-09 13:01 | disposition home or self-care (01) ==
LOC: M ED 12:15
DX: S61.231A Puncture wound without foreign body of left index finger without damage to nail, initial encounter (principal); Z77.21 Contact with and (suspected) exposure to potentially hazardous body fluids; Y92.9 Unspecified place or not applicable; Y93.F9 Activity, other caregiving; Y99.0 Civilian activity done for income or pay; Z91.048 Other nonmedicinal substance allergy status

== ENCOUNTER → 2024-03-27 | Outpatient (REF) | LOC: M EMP 12:50 | PROVIDERS: ATTEND Family Medicine | DX: Z20.822 Contact with and (suspected) exposure to COVID-19 (principal) ==

== ENCOUNTER → 2024-06-01 | Outpatient (REF) | LOC: M EMP 15:43 | PROVIDERS: ATTEND Family Medicine | DX: Z20.822 Contact with and (suspected) exposure to COVID-19 (principal) ==

== ENCOUNTER 2024-06-07 11:15 | Emergency (ER) | payer OTHER | END 2024-06-07 11:30 | disposition left against medical advice (07) | LOC: M ED 11:15 | DX: Z53.21 Procedure and treatment not carried out due to patient leaving prior to being seen by health care provider (principal) ==

== ENCOUNTER 2024-06-07 12:01 | Emergency (ER) | payer OTHER ==
[~2024-06-07] VITALS: Ht 167.6 cm; Wt 84.5 kg
[2024-06-07 12:10] VITALS: BP 119/71; TEMP 96.9; O2SAT 99
[2024-06-07 12:22] LABS: BASO % 0.3 % (0.0-1.0); EOS # 0.1 10^3/uL (0.0-0.5); EOS % 1.5 % (0.0-3.0); HEMATOCRIT 37.6 % (36.0-47.0); HEMOGLOBIN 12.6 g/dl (12.0-15.5); LYMPH # 1.7 10^3/uL (1.5-5.0); LYMPH % 27.6 % (24.0-44.0); MEAN CORPUSCULAR HEMOGLOBIN 30.4 pg (27.0-33.0); MEAN CORPUSCULAR HGB CONC 33.5 g/dl (32.0-36.5); MEAN CORPUSCULAR VOLUME 90.8 fl (80.0-96.0); MONO # 0.5 10^3/uL (0.0-0.8); MONO % 7.3 % (2.0-8.0); NEUTROPHILS # 3.9 10^3/uL (1.5-8.5); PLATELET COUNT, AUTOMATED 218 10^3/uL (150-450); RED BLOOD COUNT 4.14 10^6/uL (4.00-5.40); WHITE BLOOD COUNT 6.2 10^3/uL (4.0-10.0)
[2024-06-07 12:57] LABS: HCG, SERUM QUALITATIVE NEGATIVE (NEGATIVE)
[2024-06-07 12:58] LABS: ALBUMIN 3.9 G/DL (3.2-5.2); ALKALINE PHOSPHATASE 100 U/L (46-116); ALT/SGPT 62 U/L (7.0-40); AST/SGOT 35 U/L (<34); BILIRUBIN,TOTAL 0.7 MG/DL (0.3-1.2); BLOOD UREA NITROGEN 17 MG/DL (9-23); CALCIUM LEVEL 9.8 MG/DL (8.5-10.1); CARBON DIOXIDE LEVEL 28 MMOL/L (20-31); CHLORIDE LEVEL 108 MMOL/L (98-107); CREATININE FOR GFR 0.86 MG/DL (0.55-1.30); GLOMERULAR FILTRATION RATE > 60.0 (>60); GLUCOSE, FASTING 87 MG/DL (60-100); POTASSIUM SERUM 4.2 MMOL/L (3.5-5.1); SODIUM LEVEL 140 MMOL/L (136-145); TOTAL PROTEIN 6.7 G/DL (5.7-8.2)
[2024-06-07 13:00] LABS: HEPATITIS B SURFACE ANTIBODY NEGATIVE (POSITIVE)
[2024-06-07 13:12] LABS: HEPATITIS B SURFACE ANTIGEN NEGATIVE (NEGATIVE)
[2024-06-07 13:25] LABS: HIV SCREEN CENTAUR EXPOSED NEGATIVE (NEGATIVE)
[2024-06-07 13:33] LABS: HEPATITIS C VIRUS ABY INDEX < 0.02 INDEX (<0.8)
== END 2024-06-07 12:32 | disposition home or self-care (01) ==
LOC: M ED 12:01
DX: S61.231A Puncture wound without foreign body of left index finger without damage to nail, initial encounter (principal); W46.0XXA Contact with hypodermic needle, initial encounter; Y92.9 Unspecified place or not applicable; Y93.89 Activity, other specified; Y99.0 Civilian activity done for income or pay

== ENCOUNTER → 2024-06-25 | Outpatient (REF) | LOC: M EMP 14:21 | PROVIDERS: ATTEND Family Medicine | DX: Z11.52 Encounter for screening for COVID-19 (principal) ==

== ENCOUNTER → 2024-08-04 | Outpatient (REF) | LOC: M LAB 14:43 | PROVIDERS: ATTEND Family Medicine | DX: Z01.89 Encounter for other specified special examinations (principal) ==

== ENCOUNTER → 2024-08-10 | Outpatient (REF) | LOC: M EMP 14:18 | PROVIDERS: ATTEND Family Medicine | DX: Z01.89 Encounter for other specified special examinations (principal) ==